=== PATIENT | female | born 2000 | race Hispanic/Latino ===

== ENCOUNTER 2021-01-02 11:00 | Emergency (ER) | payer OTHER ==
[~2021-01-02] VITALS: Ht 154.9 cm; Wt 58.1 kg
[2021-01-02 11:01] VITALS: BP 128/65
[2021-01-02] MEDS ORDERED: CEFTRIAXONE 1G VIAL ONE (14:50)
[2021-01-02] MEDS ORDERED: CEFTRIAXONE 1G VIAL IM ONE (15:00)
[2021-01-02 15:18] VITALS: BP 115/66
== END 2021-01-02 15:30 | disposition home or self-care (01) ==
LOC: EEVIPCON 11:00 → EDH 11:00
DX: L02.31 Cutaneous abscess of buttock (principal)
CPT/HCPCS: 96372; 99283; J0696